=== PATIENT | male | born 1980 | race Caucasian/White ===

== ENCOUNTER 2024-04-04 11:07 | Outpatient (REF) | payer BC, SELFPAY ==
[2024-04-04 13:13] LABS: MANUAL DIFF FLAG NO
[2024-04-04 13:25] LABS: Basophils Absolute Auto 0.1 X10*3/uL (0.0-0.2); Basophils Percent Auto 1.1 % (0-2); Eosinophils Absolute Auto 0.2 X10*3/uL (0.0-0.4); Eosinophils Percent Auto 2.2 % (0-4); Hematocrit 43.7 % (42.0-52.0); Hemoglobin 14.5 g/dl (14.0-18.0); Imm Gran Abs Auto 0.04 X10*3/uL (0.00-0.03); Imm Gran Pct Auto 0.5 % (0.0-0.4); Lymphocytes Absolute Auto 1.8 X10*3/uL (1.2-4.9); Lymphocytes Percent Auto 20.6 % (20-40); Mean Corpuscular HGB Conc 33.2 g/dl (31.0-36.0); Mean Corpuscular Hemoglobin 28.4 pg (27.0-33.0); Mean Corpuscular Volume 85.7 fL (80.0-98.0); Mean Platelet Volume 10.3 fL (9.4-12.4); Monocytes Absolute Auto 0.8 X10*3/uL (0.1-1.2); Monocytes Percent Auto 9.4 % (2-11); Neutrophils Absolute Auto 5.8 x10*3/uL (2.0-8.3); Neutrophils Percent Auto 66.2 % (45-73); Platelet Count 284 X10*3/uL (160-400); Red Cell Distribution Width 14.1 % (11.0-16.0); White Blood Count 8.7 X10*3/uL (4.8-10.8)
[2024-04-04 13:28] LABS: Appearance Urine Clear; Color Urine Yellow; Glucose Urine UA Negative (Negative); Leukocyte Esterase Urine Negative (Negative); Nitrite Urine Negative (Negative); PH 5.5 (5.0-9.0); Specific Gravity - Urine 1.025 (1.005-1.025); Urine Blood Negative (Negative); Urine Ketones Trace mg/dL (Negative); Urine Protein Negative (Neg-Trace)
[2024-04-04 13:47] LABS: Anion Gap 11 (12-20); Blood Urea Nitrogen 18 mg/dL (9-16); Calcium 9.4 mg/dL (8.4-10.2); Carbon Dioxide 28 mmol/L (22-29); Chloride 106 mmol/L (96-108); Cholesterol 205 mg/dL (<200); Estimated Glomerular Filt Rate > 60; Glucose Random 116 mg/dL (60-115); Potassium 3.7 mmol/L (3.3-5.1); Sodium 141 mmol/L (135-145)
== END 2024-04-04 11:08 | disposition home or self-care (01) ==
LOC: HO.10HDL 11:07
PROVIDERS: Visit Provider Internal Medicine
DX: I80.9 Phlebitis and thrombophlebitis of unspecified site (principal); I10 Essential (primary) hypertension; Z87.442 Personal history of urinary calculi
CPT/HCPCS: 36415; 80048; 81003; 82465; 85025

== ENCOUNTER → 2024-05-05 12:45 | Outpatient (REF) | payer BC, SELFPAY ==
--- NOTE | 2024-05-05 12:51 | CA_ITS ---
Transthoracic Echocardiogram Patient (Last, First, Middle): Bryan Dixon, Gender: Male Date of : 1980 Age: 44 Procedure Date: 05/05/2024 Procedure Type: Transthoracic Echocardiogram Location: OP Height: 172.72 cm Weight: 84.82 kg BSA: 1.99 m2 Heart Rate: 79 bpm BP: 140 / 84 mmHg Cigarette Machine Filler: SB Referring MD: Brigido Presley MD Symptoms: I10 HTN Study Quality: Adequate ECG Rhythm: Sinus Conclusions: - Normal left ventricular size and systolic function. The visually estimated ejection fraction is between 60-65%. Diastolic function is normal for age. There is mild septal asymmetric hypertrophy. - Mildly increased right ventricular cavity size. There is normal right ventricular systolic function. - The left atrium is mildly dilated. The right atrium is moderately dilated. - There is mild dilatation of the sinuses of Valsalva measuring 4.00 cm and mild dilatation of the ascending aorta measuring 3.70 cm. Findings Left Ventricle Normal left ventricular size and systolic function. The visually estimated ejection fraction is between 60-65%. Diastolic function is normal for age. There is mild septal asymmetric hypertrophy. Right Ventricle Mildly increased right ventricular cavity size. There is normal right ventricular systolic function. Atria The left atrium is mildly dilated. The right atrium is moderately dilated. Aortic Valve Normal aortic valve structure and function. There is no aortic valve stenosis. There is no aortic valve regurgitation. Mitral Valve The mitral valve appears normal. There is no mitral valve regurgitation. There is no mitral valve stenosis. Pulmonic Valve The pulmonic valve is likely normal. Tricuspid Valve Normal tricuspid valve structure. There is trace tricuspid valve regurgitation. Tricuspid regurgitation envelope is inadequate for calculation of right ventricular systolic pressure. Normal right atrial pressure. Great Vessels There is mild dilatation of the sinuses of Valsalva measuring 4.00 cm and mild dilatation of the ascending aorta measuring 3.70 cm. The visualized portions of the pulmonary artery and branches are normal. Venous The inferior vena cava is normal in size and collapses greater than 50% with inspiration. Pericardium/Pleural There is no evidence of pericardial effusion. Prior Study Comparison No prior study available for comparison. Measurements 2D Linear Measurements IVSd: 1.31 0.6-0.9/0.6-1.0 cm LVIDd: 4.95 3.9-5.3/4.2-5.9 cm LVIDd Index: 2.49 2.4-3.2/2.2-3.1 cm/m2 LVIDs: 3.14 2.0-3.6 cm LVPWd: 0.77 0.7-1.1 cm LA Diam: 3.70 2.7-3.8/3.0-4.0 cm LAIDs Index: 1.86 1.5-2.3 cm/m2 LV Mass: 235.34 67-162/88-224 g LV Mass Index: 118.26 43-95/49-115 g/m2 LVOT Diam: 2.20 3.0+(-)1.3 cm 2D Systolic Function EF 4C: 55.40 >55% EF 2C: 70.90 >55% EF BiP: 64.30 >55% Mitral Valve MV Pk E: 0.85 MV PK A: 0.76 MV Decel Time: 203.00 E/A: 1.10 E'Lateral: 12.90 E'Medial: 8.05 E/E' Med: 10.50 E/E' Lat: 6.60 PHT: 59.00 MVA PHT: 3.73 Decel [place]isle: 4.18 Aortic Valve AoV Pk Hal: 1.42 AoV Pk Grad: 8.00 DAVID: 3.43 LVOT LVOT Pk Hal: 1.34 LVOT Mn Hal: 0.91 LVOT VTI: 0.24 LVOT Pk Grad: 7.00 LVOT Mn Grad: 4.00 LVOT Diam: 2.20 LVOT Area: 3.80 Diastolic Function MV Pk E: 0.85 MV Pk A: 0.76 E/A: 1.10 E'Medial: 8.05 E/E' Med: 10.50 E' Laterial: 12.90 E/E' Lat: 6.60 Right Ventricle TAPSE (mm): 26.70 TVS' Hal: 14.80 Tricuspid Valve RA Press: 3.00 Great Vessels Aorta Sinus of Valsalva: 4.00 2.0-3.5 cm Ao Asc: 3.70 2.1-3.4 cm Pulmonary Valve PV Pk Hal: 1.20 Peak PV Grad: 6.00 Updated in Other Vendor System with Status of Final Jayjay Chen MD electronically signed on 05/07/2024 2:37:48 PM with status of Final
== END ==
LOC: HO.CARD 12:45
PROVIDERS: PCP Internal Medicine; Visit Provider Internal Medicine
DX: I10 Essential (primary) hypertension (principal)
CPT/HCPCS: 93306

== ENCOUNTER → 2024-05-05 12:51 | Outpatient (BNV) | payer BC, SELFPAY | PROVIDERS: PCP Internal Medicine; Visit Provider Internal Medicine Cardiovascular Disease | DX: I42.2 Other hypertrophic cardiomyopathy (principal); I51.7 Cardiomegaly | CPT/HCPCS: 93306 ==

== ENCOUNTER 2025-03-09 09:14 | Outpatient (AMB) | payer BC, SELFPAY ==
--- OUTSIDE RECORDS SUMMARY | 2025-03-09 09:19 | XMS_ITS | Clinical Summary ---
Author Organization [facility] Address [address] [place] [id number] Phone Care Team Providers Care Fisher Spear Name Role Phone Brigido Presley MD Primary Care Provider Allergies No known active allergies Medications No known medications Social History Tobacco Use Types Packs/Day Years Used Date Smoking Tobacco: Never Smokeless Tobacco: Never Education Answer Date Recorded Are you interested in more education? Not on shant e 12/18/2022 Are you concerned about learning? Not on file 12/18/2022 No 12/18/2022 No 12/18/2022 Digital Access Answer Date Recorded No 01/18/2023 No 01/18/2023 No 01/18/2023 Reliable internet access at home? Not on file 01/18/2023 Device with a working camera? Not on file Sex and Gender Information Value Date Recorded Sex Assigned at Male 10/14/2018 9:26 PM EST Legal Sex Male 10:29 PM EDT Gender Identity Male 10/14/2018 9:26 PM EST Sexual Orientation Straight 10/14/2018 9: 26 PM EST Last Filed Vital Signs Vital Sign Reading Time Taken Comments Blood Pressure 152/99 10/14/2018 9:24 PM EST Pulse 74 10/14/2018 9:24 PM EST Temperature 36.8 C (98.2 F) 10/14/2018 9:24 PM EST Respiratory Rate 18 10/14/2018 9:24 PM EST Oxygen Saturation 97% 10/14/2018 9:24 PM EST Inhaled Oxygen Concentration - - Weight 83.9 kg (185 lb) 10/14/2018 9:24 PM EST Height 172.7 cm (5' 8 ) 10/14/2018 9:24 PM EST Body Mass Index 28.13 10/14/2018 9:24 PM EST Plan of Treatment Not on file Medical Devices Not on file Insurance [facility] Care Teams Fisher Spear Relationship Specialty Start Date End Date Brigido Presley MD [address] [place] [address] [place] [phone] PCP - General Internal Medicine 10/14/18 Additional Source Comments The information contained in this document represents components of the legal health record. It is not the complete legal health record.[facility]
--- NOTE | 2025-03-09 09:23 | A.OFFPC_ITS ---
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 Accompanied by: Spouse Allergies No Known Allergies Allergy (Verified 03/09/25 09:24) Medication List - Last Reconciled 03/09/25 by BHAVNA Benavides apixaban (Eliquis) 5 mg PO BID escitalopram oxalate 10 mg PO DAILY hyaluronate sod, cross-linked (Gel-One) intra-articular losartan 25 mg PO DAILY meloxicam 15 mg PO DAILY trazodone 50 mg PO BEDTIME PRN Tobacco use date assessed: 03/09/25 HPI HPI Comments History of Present Illness Details 45-year-old male with history of hyperte nsion, asymptomatic varicose veins, osteoarthritis of the knee, and history of thrombophlebitis of superficial branch of the left lower extremity presents to the office today for management of chronic conditions, annual physical exam, and to establish care. He is accompanied by his today. He lives at home with his and 2 children feel safe there. 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 He denies any cigarette smoking, illicit drug use or marijuana use. No regular alcohol use. He does exercise regularly and overall feet follows a healthy diet. Hypertension-controlled with blood pressure 136/88. Compliant with losartan 25 mg daily Thrombophlebitis of superficial branch of the left lower extremity/venous insufficiency/severe varicosities of the bilateral lower extremities-follows with [facility] vascular surgery. He is on Eliquis 5 mg twice daily. He does wear compression stockings Osteoarthritis of the bilateral knees-follows with [facility]. Currently undergoes cortisone injections every 6 months. He is being considered for arthroscopy. No discussion on knee replacements at this time. Concerns: Reporting significant anxiety. Guillermo 7 score 16. PHQ-9 score 14. He is a . He reports he is not sleeping well, will often wake and be out of bed. He is having significant difficulty with work secondary to his anxiety. Reports constant generalized anxiety with occasional panic attacks that limit his ability to work. He is currently working from home which he describes as his safe spot. He does not feel he is able to go into the office due to his significant anxiety and panic as this is a major trigger. He also states that he has difficulty driving due to the vascular issues with his lower extremities as he gets significant cramping which inhibits his ability to safely drive a vehicle. He denies any SI/HI. He is requesting paperwork be filled out for reasonable accommodation to allow him to continue working from home. He does follow with a counselor and is interested in medications. Health maintenance: Lisa was mailed to his house but has not yet completed this Reviewed past medical, surgical, social, family history ROS: General: No fevers, malaise, unintentional weight loss HEENT: No blurred vision, diplopia. No sore throat, nasal congestion, rhinorrhea, sinus pain, ear pain. No hearing loss Neck - no adenopathy Cardiovascular: No chest pain, palpitations, or leg edema Respiratory: No shortness of breath, wheezing, cough GI: No dysphagia, odynophagia, globus sensation. No abdominal pain, nausea, vomiting, diarrhea, constipation, melena, hematochezia : No dysuria, hematuria, increased urinary frequency, decreased urinary output. No testicular swelling or pain. No penile discharge MSK: No myalgia, back pain, arthralgias Neuro: No headaches, weakness, paresthesias Psych: See HPI Skin: No rashes or lesions EXAM: Constitutional - Awake and Alert, No apparent distress Eyes - PERRLA, EOMI. Anicteric Ears - external ears normal, canals clear, TMs intact and pearly skinner with good cone of light Nose- septum midline, nares clear, no sinus tenderness Mouth/throat- mucosa moist, tongue and uvula midline, no erythema/edema or tonsillar adenopathy. Neck-trachea midline, thyroid symmetric without palpable nodules, no adenopathy Cardiovascular - S1S2, RRR, No edema Respiratory - Normal lung expansion, Normal respiratory effort, No respiratory distress, CTA bilaterally Gastrointestinal - NT / ND; +BS; No rebound or guarding - No CVA tenderness Extremities - no calf tenderness bilaterally, no swelling Musculoskeletal - Normal inspection, normal ROM Skin - Warm/Dry, no concerning lesions Neurological - Alert & oriented x3, CN II-XII in tact, 5/5 strength BUE and BLE, 2+ patellar reflexes, sensation intact Psychological - Appropriate affect [facility] Medical History (Updated 03/09/25 @ 10:11 by BHAVNA Benavides) Osteoarthritis of knees, bilateral Major depressive disorder Generalized anxiety disorder Panic attacks Superficial thrombophlebitis of left leg Venous insufficiency Hypertension Surgical History (Updated 03/09/25 @ 10:12 by BHAVNA Benavides) No pertinent past surgical history Family History (Updated 03/09/25 @ 10:14 by BHAVNA Benavides) Father Diabetes Mother HTN (hypertension) Social History Alcohol intake: current Alcohol intake frequency: holidays/special occasions only Patient Tobacco Use Status: Former Tobacco user Tobacco use type: Cigarette e-Cigarette/Vaping Use: Never Used Questionnaire PHQ-9 Over the last 2 weeks, how often have you been bothered by any of the following problems? 1. Little interest or pleasure in doing things: nearly every day 2. Feeling down, depressed, or hopeless: more than half the days 3. Trouble falling or staying asleep, or sleeping too much: nearly every day 4. Feeling tired or having little energy: more than half the days 5. Poor appetite or overeating: several days 6. Feeling bad about yourself - or that you are a failure or have let yourself or your family down: not at all 7. Trouble concentrating on things, such as reading the newspaper or watching television: nearly every day 8. Moving or speaking so slowly that other people could have noticed. Or the opposite - being so fidgety or restless that you have been moving around a lot more than usual: not at all 9. Thoughts that you would be better off or of hurting yourself in some way: not at all Total score: 14 Depression Screening Interpretation: Positive Depression Screening Done: Yes 82909 - PHQ-9 Billing: Yes Source: Developed by Drs. Chico Eli, Jina Lacey, Bhupendra Tillman and colleagues, with an educational radha from [employer]. Thrive Questionnaire Date Thrive assessed: 03/09/25 I am a: Patient What is your living situation today?: I have a steady place to live Within the past 12 months, did the food you bought not last and you didn't have the money to get more?: Never true Within the past 12 months, did you worry whether your food would run out before you got money to buy more?: Never true Do you have trouble paying for medicines?: No Do you have trouble getting transportation to medical appointments?: No Do you have trouble paying your heating and electricity bill?: No Do you have trouble taking care of your child, family member or friend?: No Do you have trouble with day-to-day activities such as bathing, preparing meals, shopping, managing finances, etc.?: No Are you currently unemployed and looking for a job?: No Are you interested in more education?: No THRIVE Score: 0 AUDIT C Alcohol Use Questionnaire (AUDIT-C) 1. How often do you have a drink containing alcohol?: Never Total Score: 0 GUILLERMO-7 AMB Questionnaire GUILLERMO-7 Date GUILLERMO - 7 assessed: 03/09/25 Feeling nervous, anxious, or on edge: 3 = Nearly every day Not being able to stop or control worryin = More than half the days Worrying too much about different things: 3 = Nearly every day Trouble relaxin = Nearly every day Being so restless that it is hard to sit still: 3 = Nearly every day Becoming easily annoyed or irritable: 1 = Several days Feeling afraid as if something awful might happen: 1 = Several days Total GUILLERMO-7 score (0-4 normal; 5-9 mild; 10-14 moderate; 15-21 severe): 16 Source: Developed by Drs. Chico Eli, Jina Lacey, Bhupendra Tillman and colleagues, with an educational radha from [employer]. GUILLERMO-7 Assessment Billing GUILLERMO-7 Assessment Tool: GUILLERMO-7 Assessment 35346 Physical exam (Primary Care) Vital Signs: Last Vital Signs Temp 97.9 F 03/09/25 09:39 Pulse 76 03/09/25 09:39 Resp 16 03/09/25 09:39 BP 136/88 03/09/25 09:39 Pulse Ox 99 03/09/25 09:39 Oxygen Delivery Method Room Air 03/09/25 09:39 BMI result Body Mass Index 29.1 Tobacco/Smoking Status: Tobacco use Status Tobacco use date assessed 03/09/25 03/09/25 09:24 Patient Tobacco Use Status Former Tobacco user 03/09/25 09:41 Tobacco use type Cigarette 03/09/25 09:41 e-Cigarette/Vaping Use Never Used 03/09/25 09:41 Depression Screening Interpretation: Positive Coding Level of Care Code Est Pt Level 4 (24761) New Pt Prev Care 40-64y(36997) Diagnoses Routine medical exam Z00.00 Hypertension I10 Superficial thrombophlebitis of left leg I80.02 Panic attacks F41.0 Generalized anxiety disorder F41.1 Major depressive disorder F32.9 Additional Codes PHQ-9 - 13153 - PHQ-9 Billing: Yes ([id number]) GUILLERMO-7 Assessment Billing - GUILLERMO-7 Assessment Tool: GUILLERMO-7 Assessment 15693 ([id number]) Assessment & Plan Assessment & Plan (1) Routine medical exam: Code(s): Z00.00 - Encounter for general adult medical examination without abnormal findings Plan: 45-year-old male presenting for annual physical exam. Plan as below (2) Hypertension: Code(s): I10 - Essential (primary) hypertension Category: Medical Plan: Controlled. Continue losartan 25 mg daily. Low-sodium diet (3) Superficial thrombophlebitis of left leg: Code(s): I80.02 - Phlebitis and thrombophlebitis of superficial vessels of left lower extremity Category: Medical Plan: Continue following with vascular surgery at [facility]. Last note reviewed. Continue Eliquis as well as using compression stockings and leg elevation. (4) Panic attacks: Code(s): F41.0 - Panic disorder [episodic paroxysmal anxiety] Category: Medical Plan: Uncontrolled. GUILLERMO 7 score 16. Lexapro 10 mg daily prescribed as well as Ativan p.r.n. trazodone for insomnia (5) Generalized anxiety disorder: Code(s): F41.1 - Generalized anxiety disorder Category: Medical Plan: Uncontrolled. GUILLERMO 7 score 16. Lexapro 10 mg daily prescribed as well as Ativan p.r.n. (6) Major depressive disorder: Code(s): F32.9 - Major depressive disorder, single episode, unspecified Category: Medical Plan: Uncontrolled. PHQ9 score 14. Lexapro 10 mg daily prescribed as well as Ativan p.r.n. Plan Follow-up in the office in 4-6 weeks to assess depression/anxiety/panic attacks. Routine screening labs as ordered below Continue with screening colonoscopies and PSA Continue following for annual skin exams and use sun protection Annual eye exams Regular dental exams Wear seat belt in car Recommend regular exercise and healthy diet Orders: Orders Complete Blood Count Auto Diff Today F41.1 - Generalized anxiety disorder, I10 - Essential (primary) hypertension, I80.02 - Phlebitis and thrombophlebitis of superficial vessels of left lower extremity, Z00.00 - Encounter for general mino lt medical examination without abnormal findings Vitamin D 25-OH Total Today F41.1 - Generalized anxiety disorder, I10 - Essential (primary) hypertension, I80.02 - Phlebitis and thrombophlebitis of superficial vessels of left lower extremity, Z00.00 - Encounter for general adult medical examination without abnormal findings TSH reflex Free T4 Today F41.1 - Generalized anxiety disorder, I10 - Essential (primary) hypertension, I80.02 - Phlebitis and thrombophlebitis of superficial vessels of left lower extremity, Z00.00 - Encounter for general adult medical examination without abnormal findings Basic Metabolic Panel Today F41.1 - Generalized anxiety disorder, I10 - Essential (primary) hypertension, I80.02 - Phlebitis and thrombophlebitis of superficial vessels of left lower extremity, Z00.00 - Encounter for general adult medical examination without abnormal findings Hemoglobin A1c Today F41.1 - Generalized anxiety disorder, I10 - Essential (primary) hypertension, I80.02 - Phlebitis and thrombophlebitis of superficial vessels of left lower extremity, Z00.00 - Encounter for general adult medical examination without abnormal findings Lipid Panel Today F41.1 - Generalized anxiety disorder, I10 - Essential (primary) hypertension, I80.02 - Phlebitis and thrombophlebitis of superficial vessels of left lower extremity, Z00.00 - Encounter for general adult medical examination without abnormal findings Liver Panel Today F41.1 - Generalized anxiety disorder, I10 - Essential (primary) hypertension, I80.02 - Phlebitis and thrombophlebitis of superficial vessels of left lower extremity, Z00.00 - Encounter for general adult medical examination without abnormal findings Medications: New escitalopram oxalate Take 1/2 tab daily x 1 week, then take 1 tab daily 10 mg PO DAILY 90 tabs 1RF trazodone 50 mg PO BEDTIME PRN 90 tabs 1RF sleep lorazepam 0.5 mg PO BID PRN 60 tabs 0RF anxiety/panic attacks
[2025-03-09 09:36] VITALS: BMI 29.1
[2025-03-09 09:39] VITALS: BP 136/88; PULSE 76; RESP 16; TEMP 36.6; O2SAT 99
== END 2025-03-09 10:06 | disposition home or self-care (01) ==
LOC: HO.HMCHD 09:14
PROVIDERS: PCP Internal Medicine; Visit Provider Physician Assistant
DX: Z00.00 Encounter for general adult medical examination without abnormal findings (principal); I10 Essential (primary) hypertension; I80.02 Phlebitis and thrombophlebitis of superficial vessels of left lower extremity; F41.0 Panic disorder [episodic paroxysmal anxiety]; F41.1 Generalized anxiety disorder; F32.9 Major depressive disorder, single episode, unspecified

== ENCOUNTER → 2025-03-09 09:14 | Outpatient (BNVA) | payer BC, SELFPAY | PROVIDERS: PCP Internal Medicine; Visit Provider Physician Assistant | DX: Z00.00 Encounter for general adult medical examination without abnormal findings (principal); I10 Essential (primary) hypertension; I80.02 Phlebitis and thrombophlebitis of superficial vessels of left lower extremity; F41.0 Panic disorder [episodic paroxysmal anxiety]; F41.1 Generalized anxiety disorder; F32.9 Major depressive disorder, single episode, unspecified; M17.0 Bilateral primary osteoarthritis of knee; Z79.899 Other long term (current) drug therapy; Z13.31 Encounter for screening for depression; Z13.39 Encounter for screening examination for other mental health and behavioral disorders | CPT/HCPCS: 96127 ==

== ENCOUNTER 2025-04-11 09:44 | Outpatient (REF) | payer BC, SELFPAY ==
--- OUTSIDE RECORDS SUMMARY | 2025-04-11 10:33 | XMS_ITS | Continuity of Care Document ---
Author Name [facility] Organization [facility] Care Team Providers Care Fleet Dispatch Manager Name Role Phone [facility] Unavailable Unavailable Allergies, Adverse Reactions, Alerts Combined list of allergies from Department of Defense and Veterans Affairs facilities. It does not include entries that were removed or entered in error. Substance Category Reaction Severity Reaction type Status Date Reported Comments Source No Known Allergies Drug allergy (disorder) active 11/13/2008 [facility] Immunizations Combined list of available immunizations from the Department of Defense and Veterans Affairs facilities. Immunization Series Date Given Administered By Site Reaction Lot Number CVX Code Drug Case Specialist Status Comments Source FLU,3 YRS (HISTORICAL) 2012 88 complet ed Site: Left Deltoid [facility] FLU,3 YRS (HISTORICAL) 2010 88 complet ed Site: Left Deltoid [facility] FLU,3 YRS (HISTORICAL) 2009 88 complet ed Site: Left Deltoid [facility] FLU,3 YRS (HISTORICAL) 2008 88 complet ed Site: Left Deltoid [facility] FLU,3 YRS (HISTORICAL) 2007 88 complet ed Site: Left Deltoid [facility] FLU,3 YRS (HISTORICAL) 2006 88 complet ed Site: Right Deltoid [facility] Procedures Combined list of: 1) Procedures from Department of Veterans Affairs facilities going back up to thelast 18 months, not all VA non-surgical procedures are included; 2) All procedures from the Department of Defense facilities. Procedure Procedure Type Code Date Perfomer Comments Sourc e PURE TONE AUDIOMETRY (THRESHOLD); AIR ONLY 11/20/2002 [facility] INFUSION, NORMAL SALINE SOLUTION , 1000 CC 08/30/2002 [facility] PURE TONE AUDIOMETRY (THRESHOLD); AIR ONLY 11/17/2001 [facility] PURE TONE AUDIOMETRY (THRESHOLD); AIR ONLY 11/18/2000 [facility] Social History Combined list of available smoking, tobacco, and other social history from Department of Defense and Veterans Affairs facilities. Social History Type Response Date Comment Sourc e This section is an empty social history section. [facility]
--- OUTSIDE RECORDS SUMMARY | 2025-04-11 10:34 | XMS_ITS | Clinical Summary ---
Author Organization [facility] Address [address] [place] [phone] Phone Care Team Providers Care Fitness/Wellness Director Name Role Phone Brigido Presley MD Primary [...] file Medical Devices Not on file Insurance [facility] Care Teams Fitness/Wellness Director Relationship Specialty Start Date End Date Brigido Presley MD [address] [place] [address] [place] [id number] PCP - General Internal Medicine 10/14/18 Additional Source Comments The information contained in this document represents components of the legal health record. It is not the complete legal health record.[facility]
[2025-04-11 11:02] LABS: MANUAL DIFF FLAG NO
[2025-04-11 11:15] LABS: Hematocrit 41.9 % (42.0-52.0); Hemoglobin 14.3 g/dl (14.0-18.0); Imm Gran Abs Auto 0.05 X10*3/uL (0.00-0.03); Imm Gran Pct Auto 0.5 % (0.0-0.4); Lymphocytes Absolute Auto 1.8 X10*3/uL (1.2-4.9); Mean Corpuscular HGB Conc 34.1 g/dl (31.0-36.0); Mean Corpuscular Hemoglobin 28.9 pg (27.0-33.0); Mean Corpuscular Volume 84.8 fL (80.0-98.0); NRBC Abs Auto 0.000 X10*3/uL (0.0-0.012); NRBC Pct Auto 0.0 /100WBC (0.0-0.2); Platelet Count 257 X10*3/uL (160-400); Red Blood Count 4.94 X10*6/uL (4.60-5.80); White Blood Count 10.1 X10*3/uL (4.8-10.8)
[2025-04-11 11:30] LABS: Hemoglobin A1C 140.6903 umol/L; Total Hemoglobin (HGBA1C) 3785.5299 umol/L
[2025-04-11 11:40] LABS: Alanine Aminotransferase 37 U/L (0-40); Albumin Level 4.4 g/dL (3.5-5.0); Alkaline Phosphatase 59 U/L (39-117); Anion Gap 14 (12-20); Aspartate Amino Transferase 30 U/L (5-37); Blood Urea Nitrogen 16 mg/dL (9-16); Calcium 9.7 mg/dL (8.4-10.2); Carbon Dioxide 25 mmol/L (22-29); Chloride 100 mmol/L (96-108); Cholesterol 209 mg/dL (<200); Estimated Glomerular Filt Rate > 60; HDL Cholesterol 48 mg/dL (>40); Potassium 3.9 mmol/L (3.3-5.1); Sodium 135 mmol/L (135-145); Total Protein 6.7 g/dL (6.5-8.0); Triglycerides 205 mg/dL (<150)
== END 2025-04-11 09:45 | disposition home or self-care (01) ==
LOC: HO.10HDL 09:44
PROVIDERS: Visit Provider Physician Assistant
DX: F41.1 Generalized anxiety disorder (principal); I80.02 Phlebitis and thrombophlebitis of superficial vessels of left lower extremity; I10 Essential (primary) hypertension; Z87.891 Personal history of nicotine dependence; Z13.1 Encounter for screening for diabetes mellitus; Z00.00 Encounter for general adult medical examination without abnormal findings
CPT/HCPCS: 36415; 80048; 80061; 80076; 82306; 83036; 84443; 85025

== ENCOUNTER 2025-04-11 09:55 | Outpatient (AMB) | payer BC, SELFPAY ==
--- NOTE | 2025-04-11 09:58 | MHC.PC.OV ---
Vital Signs 04/11/25 10:01 04/11/25 10:03 Height 5 ft 7 in Weight 86.183 kg BP 120/70 Blood Pressure Location Rt brachial Position Sitting Respiration 16 Pulse 78 Pulse Source Pulse Oximeter Temp 98 F Temp Source Temporal Artery Scan Pulse Oximetry (%) 98 Oxygen Delivery Method Room Air Intake Visit Reasons: 1 month f/u [employer] Supervisor Required: No Accompanied by: Self / Same As Patient Allergies No Known Allergies Allergy (Verified 04/11/25 09:58) Tobacco use date assessed: 03/09/25 HPI HPI Comments History of Present Illness Details 45-year-old male with history of major depressive disorder, panic disorder, generalized anxiety disorder presents to the office today for re-evaluation. He was started on escitalopram 10 mg daily 1 month ago as well as lorazepam 0.5 mg twice daily as needed and trazodone as needed. He does feel his symptoms of depression anxiety have improved but are still quite limiting. He does need to take his Ativan at least 3-4 times weekly. He states he does still experience anxiety episodes as well as panic. He does still shows signs of ongoing activity as he is picking at his fingers as well as standing not sitting down. He does feel that returning to work in the office would cause him significant distress related to panic. He states that even thinking about work in the office causes great anxiety. He would not be able to focus as he would be ruminating, anxious about his coworkers and would not be able to have optimal productivity and with the to decreased quality of work. He does state that he does also have some agoraphobia. He is also unable to drive without any significant anxiety and his drives him where he needs to go. He still feels working from home makes him feel safe and he is able to work efficiently. He denies any SI/HI. ROS: General: No fevers, malaise, unintentional weight loss HEENT: No blurred vision, diplopia. No sore throat, nasal congestion, rhinorrhea, sinus pain, ear pain Cardiovascular: No chest pain, palpitations, or leg edema Respiratory: No shortness of breath, wheezing, cough GI: No abdominal pain, nausea, vomiting, diarrhea, constipation, melena, hematochezia : No dysuria, hematuria, increased urinary frequency, decreased urinary output MSK: No myalgia, back pain Neuro: No headaches, weakness, paresthesias Psych-See HPI Skin: No rashes or lesions EXAM: Constitutional - Awake and Alert, No apparent distress Eyes - PERRL Cardiovascular - S1S2, RRR, No edema Respiratory - Normal lung expansion, Normal respiratory effort, No respiratory distress, CTA bilaterally Extremities - no calf tenderness bilaterally, no swelling Skin - Warm/Dry Neurological - Alert & oriented x3 Psychological - Appropriate affect, anxious appearing- standing, fidgeting, picking fingers PFSH Medical History (Updated 03/09/25 @ 10:11 by BHAVNA Benavides) Osteoarthritis of knees, bilateral Major depressive disorder Generalized anxiety disorder Panic attacks Superficial thrombophlebitis of left leg Venous insufficiency Hypertension Surgical History (Updated 03/09/25 @ 10:12 by BHAVNA Benavides) No pertinent past surgical history Family History (Updated 03/09/25 @ 10:14 by BHAVNA Benavides) Father Diabetes Mother HTN (hypertension) Social History (Updated 03/09/25 @ 10:15 by BHAVNA Benavides) Alcohol intake: current Alcohol intake frequency: holidays/special occasions only Patient Tobacco Use Status: Former Tobacco user Tobacco use type: Cigarette e-Cigarette/Vaping Use: Never Used Questionnaire Thrive Questionnaire Date Thrive assessed: 03/09/25 AUDIT C Alcohol Use Questionnaire (AUDIT-C) 1. How often do you have a drink containing alcohol?: Never Total Score: 0 DAYANA-7 AMB Questionnaire DAYANA-7 Date DAYANA - 7 assessed: 03/09/25 Source: Developed by Drs. Chico Eli, Jina Lacey, Bhupendra Tillman and colleagues, with an educational radha from [employer]. Physical exam (Primary Care) Vital Signs: Last Vital Signs Temp 98 F 04/11/25 10:03 Pulse 78 04/11/25 10:03 Resp 16 04/11/25 10:03 BP 120/70 04/11/25 10:03 Pulse Ox 98 04/11/25 10:03 Oxygen Delivery Method Room Air 04/11/25 10:03 Tobacco/Smoking Status: Tobacco use Status Tobacco use date assessed 03/09/25 04/11/25 10:04 Patient Tobacco Use Status Former Tobacco user 04/11/25 10:04 Tobacco use type Cigarette 04/11/25 10:04 e-Cigarette/Vaping Use Never Used 04/11/25 10:04 Thrive Assessment: Date of Thrive Assessment Date Thrive assessed 03/09/25 04/11/25 10:04 Coding Level of Care Code Est Pt Level 4 (41822) Diagnoses Panic attacks F41.0 Generalized anxiety disorder F41.1 Major depressive disorder F32.9 Assessment & Plan Assessment & Plan (1) Panic attacks: Code(s): F41.0 - Panic disorder [episodic paroxysmal anxiety] Category: Medical (2) Generalized anxiety disorder: Code(s): F41.1 - Generalized anxiety disorder Category: Medical (3) Major depressive disorder: Code(s): F32.9 - Major depressive disorder, single episode, unspecified Category: Medical Plan: Follow-up in the office in 6 months, sooner if needed Plan Symptoms of depression, anxiety and panic have greatly improved but are still significantly limiting. He can continue to use escitalopram but will increase dose to 15 mg daily. He can use lorazepam 0.5 mg twice daily as needed. He is advised that he can take this along with trazodone to help with rumination. There are no alarm symptoms. He is advised to contact the office in several weeks if the escitalopram has still not optimized his symptoms. At that time, can consider increase to 20 mg daily. Work paperwork filled out Medications: Changed From escitalopram oxalate Take 1/2 tab daily x 1 week, then take 1 tab daily 10 mg PO DAILY 90 tabs 1RF To escitalopram oxalate 15 mg (1.5 x 10 mg) PO DAILY 135 tabs 1RF
[2025-04-11 10:03] VITALS: BP 120/70; PULSE 78; RESP 16; TEMP 36.6; O2SAT 98
== END 2025-04-11 10:36 | disposition home or self-care (01) ==
LOC: HO.HMCHD 09:56
PROVIDERS: PCP Internal Medicine; Visit Provider Physician Assistant
DX: F41.0 Panic disorder [episodic paroxysmal anxiety] (principal); F41.1 Generalized anxiety disorder; F32.9 Major depressive disorder, single episode, unspecified